=== PATIENT | male | born 1965 | race Caucasian/White ===

== ENCOUNTER 2017-10-06 13:01 | Emergency (ER) | payer BC, OTHER ==
--- NOTE | 2017-10-06 13:29 | ER Document Report ---
ED Medical Screen (RME) - General Chief Complaint: Chest Pain > 30 Stated Complaint: CHEST PAIN Time Seen by Provider: 10/06/17 13:14 Notes: RAPID MEDICAL EVALUATION DISCLOSURE I have seen this patient as part of a Rapid Medical Evaluation and, if applicable, placed any initially appropriate orders. The patient will be seen and fully evaluated, including a full history and physical exam, by a provider ( in Main ED or Fast Track) when a room becomes available. 51-year-old male here with complaints of bilateral lower chest pain diaphoresis nausea and lightheadedness that occurred earlier today while the patient was sitting at his desk. He had just gotten back from his other store location prior to the onset of the symptoms. He did not take anything for the symptoms. Symptoms lasted for approximately less than 1 minute before complete resolution. He does not currently have any of the symptoms. He did take 325 mg aspirin earlier in the day. Of note, he has a history of cardiac arrest in 2012 and was transferred to the intensive care unit in [place]. TRAVEL OUTSIDE OF THE [place] IN LAST 30 DAYS: No - Related Data Allergies/Adverse Reactions: No Known Allergies Allergy (Verified 10/06/17 13:07) Home Medications: amlodipine. potassium. metoprolol. ASA Past Medical History - Social History Frequency of alcohol use: Heavy Drug Abuse: None - Past Medical History Cardiac Medical History: Reports: Hx Hypertension Renal/ Medical History: Denies: Hx Peritoneal Dialysis Past Surgical History: Reports: Hx Cardiac Surgery - defib - Immunizations Hx Diphtheria, Pertussis, Tetanus Vaccination: Yes Physical Exam - Vital signs Vitals: Temp Pulse Resp BP Pulse Ox 97.9 F 56 L 16 149/79 H 98 10/06/17 13:17 10/06/17 13:17 10/06/17 13:17 10/06/17 13:17 10/06/17 13:17 Course - Vital Signs Vital signs: Temp Pulse Resp BP Pulse Ox 97.9 F 56 L 16 149/79 H 98 10/06/17 13:17 10/06/17 13:17 10/06/17 13:17 10/06/17 13:17 10/06/17 13:17
[2017-10-06 14:10] LABS: ABSOLUTE BASOPHILS # (AUTO) 0.1 10^3/uL (0.0-0.2); ABSOLUTE EOSINOPHILS # (AUTO) 0.4 10^3/uL (0.0-0.6); ABSOLUTE LYMPHOCYTES (AUTO) 1.5 10^3/uL (0.5-4.7); ABSOLUTE MONOCYTES (AUTO) 0.5 10^3/uL (0.1-1.4); ABSOLUTE NEUT (AUTO) 3.3 10^3/uL (1.7-8.2); BASOPHILS % (AUTO) 1.1 % (0-2); EOSINOPHILS % (AUTO) 6.9 % (0-6); HEMATOCRIT 41.6 % (37.9-51.0); HEMOGLOBIN 14.2 g/dL (13.5-17.0); MEAN CORPUSCULAR HEMOGLOBIN 29.9 pg (27.0-33.4); MEAN CORPUSCULAR HGB CONC 34.1 g/dL (32.0-36.0); MEAN CORPUSCULAR VOLUME 88 fl (80-97); MONOCYTES % (AUTO) 8.6 % (3-13); PLATELET COUNT 253 10^3/uL (150-450); RED BLOOD COUNT 4.75 10^6/uL (4.35-5.55); RED CELL DISTRIBUTION WIDTH 12.8 % (11.5-14.0); SEGMENTED NEUTROPHILS % (AUTO) 57.4 % (42-78); TOTAL CELLS COUNTED % (AUTO) 100 %; WHITE BLOOD COUNT 5.8 10^3/uL (4.0-10.5)
--- NOTE | 2017-10-06 14:10 | EKG REPORT ---
SEVERITY:- ABNORMAL ECG - SINUS RHYTHM FIRST DEGREE AV BLOCK : Confirmed by: Delbert Hatch MD 06-Oct-2017 14:10:07
[2017-10-06 14:30] LABS: ANION GAP 15 (5-19); BLOOD UREA NITROGEN 21 mg/dL (7-20); CALCIUM 9.8 mg/dL (8.4-10.2); CARBON DIOXIDE 26 mmol/L (22-30); CHLORIDE 104 mmol/L (98-107); GLUCOSE 110 mg/dL (75-110); PHOSPHORUS 3.9 mg/dL (2.5-4.5); SODIUM 144.6 mmol/L (137-145)
--- NOTE | 2017-10-06 14:46 | ER Document Report ---
ED General - General Chief Complaint: Chest Pain > 30 Stated Complaint: CHEST PAIN Time Seen by Provider: 10/06/17 13:14 Mode of Arrival: Ambulatory Information source: Patient, Relative Notes: 51-year-old male with a history of hypertension, previous episode of ventricular fibrillation in 2013 requiring a defibrillator placement presents today with complaint of chest pain. Patient states that 2 hours prior to arrival while sitting at his desk he experienced bilateral lower chest pain that he describes as a tightness. He states this tightness lasted approximately 30 seconds and has not reoccurred. He does admit to associated lightheadedness, nausea and diaphoresis with this pain. Patient currently is pain-free. He states he took 325 mg of aspirin prior to arrival. Patient denies defibrillator firing. Patient's current medications include amlodipine, metoprolol and potassium supplement. Denies any recent illnesses. He does admit to continuous tobacco use and daily alcohol use. TRAVEL OUTSIDE OF THE [place] IN LAST 30 DAYS: No - HPI Onset: Just prior to arrival Onset/Duration: Sudden, Gone Quality of pain: Other - Tightness Severity: Mild Associated symptoms: Nausea, Sweating, Other - Lightheaded Exacerbated by: Denies Relieved by: Denies Similar symptoms previously: No Recently seen / treated by doctor: No - Related Data Allergies/Adverse Reactions: No Known Allergies Allergy (Verified 10/06/17 13:07) Home Medications: amlodipine. potassium. metoprolol. ASA Past Medical History - General Information source: Patient, Relative - Social History Smoking Status: Current Every Day Smoker Frequency of alcohol use: Heavy Drug Abuse: None Lives with: Spouse/Significant other Family History: Reviewed & Not Pertinent Patient has suicidal ideation: No Patient has homicidal ideation: No - Past Medical History Cardiac Medical History: Reports: Hx Hypertension Renal/ Medical History: Denies: Hx Peritoneal Dialysis Past Surgical History: Reports: Hx Cardiac Surgery - defib - Immunizations Hx Diphtheria, Pertussis, Tetanus Vaccination: Yes Review of Systems - Review of Systems Notes: Patient denies fever, chills, vomiting, headache, ear pain, sore throat, cough, shortness of breath, abdominal pain, back pain, dysuria, hematuria, rash, SI/ HI. Patient admits to 30 seconds of chest tightness that was associated with nausea, diaphoresis and lightheadedness. Patient is currently symptom-free Physical Exam - Vital signs Vitals: Temp Pulse Resp BP Pulse Ox 97.9 F 56 L 16 149/79 H 98 10/06/17 13:17 10/06/17 13:17 10/06/17 13:17 10/06/17 13:17 10/06/17 13:17 Interpretation: Normal, Hypertensive - Notes Notes: PHYSICAL EXAMINATION: GENERAL: Well-appearing, well-nourished and in no acute distress. HEAD: Atraumatic, normocephalic. EYES: Pupils equal round and reactive to light, extraocular movements intact, sclera anicteric, conjunctiva are normal. ENT: Nares patent, oropharynx clear without exudates. Moist mucous membranes. NECK: Normal range of motion, supple without lymphadenopathy LUNGS: Breath sounds clear to auscultation bilaterally and equal. No wheezes rales or rhonchi. HEART: Regular rate and rhythm without murmurs ABDOMEN: Soft, nontender, nondistended abdomen. No guarding, no rebound. No masses appreciated. Musculoskeletal: Normal range of motion, no pitting or edema. No cyanosis. NEUROLOGICAL: Cranial nerves grossly intact. Normal speech, normal gait. Normal sensory, motor exams PSYCH: Normal mood, normal affect. SKIN: Carlos complexion. Warm, Dry, normal turgor, no rashes or lesions noted. Course - Re-evaluation Re-evalutation: Laboratory 10/06/17 10/06/17 13:58 13:58 WBC 5.8 RBC 4.75 Hgb 14.2 Hct 41.6 MCV 88 MCH 29.9 MCHC 34.1 RDW 12.8 Plt Count 253 Seg Neutrophils % 57.4 Lymphocytes % 26.0 Monocytes % 8.6 Eosinophils % 6.9 H Basophils % 1.1 Absolute Neutrophils 3.3 Absolute Lymphocytes 1.5 Absolute Monocytes 0.5 Absolute Eosinophils 0.4 Absolute Basophils 0.1 Sodium 144.6 Potassium 4.0 Chloride 104 Carbon Dioxide 26 Anion Gap 15 BUN 21 H Creatinine 1.00 Est GFR ( Amer) > 60 Est GFR (Non-Af Amer) > 60 Glucose 110 Calcium 9.8 Phosphorus 3.9 Magnesium 1.9 Laboratory 10/06/17 10/06/17 10/06/17 13:58 13:58 13:58 WBC 5.8 RBC 4.75 Hgb 14.2 Hct 41.6 MCV 88 MCH 29.9 MCHC 34.1 RDW 12.8 Plt Count 253 Seg Neutrophils % 57.4 Lymphocytes % 26.0 Monocytes % 8.6 Eosinophils % 6.9 H Basophils % 1.1 Absolute Neutrophils 3.3 Absolute Lymphocytes 1.5 Absolute Monocytes 0.5 Absolute Eosinophils 0.4 Absolute Basophils 0.1 Sodium 144.6 Potassium 4.0 Chloride 104 Carbon Dioxide 26 Anion Gap 15 BUN 21 H Creatinine 1.00 Est GFR ( Amer) > 60 Est GFR (Non-Af Amer) > 60 Glucose 110 Calcium 9.8 Phosphorus 3.9 Magnesium 1.9 Troponin I < 0.012 NT-Pro-B Natriuret Pep 38 10/06/17 17:05 WBC RBC Hgb Hct MCV MCH MCHC RDW Plt Count Seg Neutrophils % Lymphocytes % Monocytes % Eosinophils % Basophils % Absolute Neutrophils Absolute Lymphocytes Absolute Monocytes Absolute Eosinophils Absolute Basophils Sodium Potassium Chloride Carbon Dioxide Anion Gap BUN Creatinine Est GFR ( Amer) Est GFR (Non-Af Amer) Glucose Calcium Phosphorus Magnesium Troponin I < 0.012 NT-Pro-B Natriuret Pep 10/06/17 14:48 51-year-old male with a history of ventricular fibrillation with a defibrillator , hypertension, heavy alcohol use presents with complaint of chest pain that occurred 2 hours prior to arrival described as a tightness that lasted 20 seconds and self resolved and has not recurred over the 5 hours the patient was in the emergency department. Patient denies defibrillator firing. Upon arrival vitals are reviewed. Patient does not appear toxic or dehydrated. He is in no acute distress. Patient has no physical complaints upon my exam. Cardiac workup including a delta troponin was obtained within normal limits. Patient is without leukocytosis, electrolyte abnormality. EKG showed sinus rhythm and first-degree AV block. I did discuss admission with the patient and his feel that this is not necessary at this time. 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 Patient and spouse were provided the opportunity to ask questions, and express concerns. Discharge instructions discussed. Patient is agreeable with discharge home. Return indications explained and discussed with the patient who displays understanding. Patient encouraged to return to the emergency department immediately with any concerns. 10/08/17 14:36 - Vital Signs Vital signs: Temp Pulse Resp BP Pulse Ox 97.9 F 56 L 16 128/67 H 97 10/06/17 13:17 10/06/17 13:17 10/06/17 14:05 10/06/17 18:01 10/06/17 18:01 - Laboratory Result Diagrams: 10/06/17 13:58 10/06/17 13:58 Laboratory results interpreted by me: 10/06/17 10/06/17 13:58 13:58 Eosinophils % 6.9 H BUN 21 H Discharge - Discharge Clinical Impression: First degree atrioventricular block Chest pain Qualifiers: Chest pain type: unspecified Qualified Code(s): R07.9 - Chest pain, unspecified Condition: Good Disposition: HOME, SELF-CARE Instructions: Chest Pain of Unclear Cause ([facility]) Additional Instructions: Follow up with your physician tomorrow and your sawmill moulder operator for further care or return to the ED IMMEDIATELY if symptoms worsen or new concerns occur. If you cannot afford to follow up with your primary care physician a list of low cost clinics have been provided at the end of your discharge papers as well. Forms: Elevated Blood Pressure, Smoking Cessation Education Referrals: YARI VÁSQUEZ MD [Primary Care Provider] - Follow up as needed
[2017-10-06 14:48] LABS: NT PRO BNP 38 pg/mL (5-900)
[2017-10-06 14:49] LABS: TROPONIN I < 0.012 ng/mL
--- NOTE | 2017-10-06 15:04 | RADIOLOGY REPORT (SQ) ---
EXAM DESCRIPTION: CHEST 2 VIEWS COMPLETED DATE/TIME: 10/06/2017 2:32 pm REASON FOR STUDY: CP COMPARISON: 06/02/2012 NUMBER OF VIEWS: Two view TECHNIQUE: Frontal and lateral radiographic images of the chest acquired. LIMITATIONS: None. FINDINGS: LUNGS AND PLEURA: Pleural thickening on the right. Scarring in the left base. MEDIASTINUM AND HILAR STRUCTURES: Stable heart size and mediastinal structures. HEART AND VASCULAR STRUCTURES: Stable appearance. SUPPORT DEVICES: Appropriate location without change. BONES: No acute findings. OTHER: No other significant finding. IMPRESSION: No acute findings in the chest. TECHNICAL DOCUMENTATION: JOB ID: [id number] [employer]- All Rights Reserved Reading location - IP/workstation name: [email or web address]
--- NOTE | 2017-10-06 18:21 | EKG REPORT ---
SEVERITY:- ABNORMAL ECG - SINUS RHYTHM FIRST DEGREE AV BLOCK : Confirmed by: Delbert Hatch MD 06-Oct-2017 18:21:09
[2017-10-06 18:24] VITALS: BP 128/67
== END 2017-10-06 18:43 | disposition home or self-care (01) ==
LOC: ER 13:01
DX: I44.0 Atrioventricular block, first degree (principal); R07.89 Other chest pain; I49.01 Ventricular fibrillation; I10 Essential (primary) hypertension; R42 Dizziness and giddiness; R11.0 Nausea; R61 Generalized hyperhidrosis; Z79.899 Other long term (current) drug therapy; Z95.810 Presence of automatic (implantable) cardiac defibrillator; Z79.82 Long term (current) use of aspirin; F17.200 Nicotine dependence, unspecified, uncomplicated
CPT/HCPCS: 36415; 71046; 80048; 83735; 83880; 84100; 84484; 85025; 93005; 93010; 99285

== ENCOUNTER → 2020-02-21 | Outpatient (CLI) | payer BC ==
[2020-02-21 12:08] VITALS: BP 121/60
--- NOTE | 2020-02-21 12:08 | ER RDC ASSESSMENT REPORT ---
Intake - In the Last 14 days Have you traveled outside [place]?: No Have you been in close contact with someone CONFIRMED: Yes Worked in Healthcare?: No - Symptoms Subjective Fever([place] feverish): No Chills: Yes Muscule Aches: Yes Runny Nose: No Sore Throat: Yes Cough (New or worsening chronic cough): Yes Shortness of breath: No Nausea or Vomiting: Yes Headache: Yes Abdominal Pain: No Diarrhea(3 or more loose stools in last 24 hours): No - Do you have any of the following Chronic lung disease: Asthma or emphysema or COPD: No Cystic Fibrosis: No Diabetes: No High Blood Pressure: Yes Cardiovascular Disease: Yes Cardiovascular Disease Comment: Patient had ventricular fibrillation 8 years ago and has a implanted defibrillator Chronic Kidney Disease: No Chronic Liver Disease: No Chronic blood disorder like Sickle Cell Disease: No Weak immune system due to disease or medication: No Neurologic condition that limits movement: No Developmental delay - Moderate to Severe: No Recent (within past 2 weeks) or current : No Morbid Obesity (>100 pounds over ideal weight): Yes Obesity Comment: Height 6 feet 2 inches weight 260 pounds - Objective Temperature: 98.1 F Pulse Rate: 67 Respiratory Rate: 18 Blood Pressure: 121/60 O2 Sat by Pulse Oximetry: 96 Objective: Given above, testing performed: If Testing Performed: Test Specimen Type Sent to General - General Information source: Patient Notes: Here at [facility] for cover testing. Patient reports friend had tested positive about a month ago and patient had dinner with friend on Friday patient developed symptoms yesterday. Reporting chills muscle aches cough nausea and headache. Patient PCP is Dr. Guallpa and plans to follow-up with him later today. - Related Data Allergies/Adverse Reactions: No Known Allergies Allergy (Verified 10/06/17 13:07) Past Medical History - General Information source: Patient - Social History Smoking Status: Former Smoker - Quit October 2019 Family History: Reviewed & Not Pertinent - Past Medical History Cardiac Medical History: Reports: Hx Hypertension Renal/ Medical History: Denies: Hx Peritoneal Dialysis Past Surgical History: Reports: Hx Cardiac Surgery - defib Physical Exam - General General appearance: Appears well, Alert In distress: None Notes: PHYSICAL EXAMINATION: GENERAL: Well-appearing and in no acute distress. HEAD: Atraumatic, normocephalic. EYES: sclera anicteric, conjunctiva are normal. ENT: nares patent. Moist mucous membranes. NECK: Normal range of motion, supple without lymphadenopathy LUNGS: CTAB and equal. No wheezes rales or rhonchi. Respirations even and unlabored lung sounds clear. HEART: Regular rate and rhythm without murmurs ABDOMEN: Soft, nontender, normal bowel sounds, no guarding. EXTREMITIES: Normal range of motion, no pitting edema. No cyanosis. NEUROLOGICAL: Cranial nerves grossly intact. Normal speech. Normal gait. PSYCH: Normal mood, normal affect. SKIN: Warm, Dry, normal turgor, no rashes or lesions noted Diagnostic Results Laboratory Results: Patient informed of negative rapid strep and negative rapid flu results. Pending strep culture pending COVID testing results. Patient provided instructions regarding code to include: As a person under investigation for Covid 19, the [place] department of Health and Human Services, division of public health advises you to adhere to the following guidance until your test results are reported to you. If your test result is positive, you will receive additional information from your provider and your local health department at that time. Remain at home until you are cleared by the health provider or public health authorities. Keep a log of visitors to your home, notify any visitors to your home of your isolation status. If you plan to move to a new address or leave the county, notify the local health department in your County. Call your doctor or seek care if you have an urgent medical need. Before seeking medical care, call ahead to get instructions from the provider before arriving at the medical office clinic or hospital. Notify them that you are being tested for the virus that causes Covid 19 so that arrangements can be made, as necessary, to prevent transmission to others in the healthcare setting. Next, notify the local health department in your county. If a medical emergency arises and you need to call 911, inform the first responders that you are being tested for the virus that causes Covid 19. Next, notify the local health department in your county. Patient Education/Counseling Counseling/Education: Patient presents with upper respiratory symptoms worrisome for possible Covid 19. Patient does not have emergency worring symptoms such as difficulty breathing, shortness of breath, chest pain, pressure, confusion or cyanosis. Patient appears suitable for discharge. Patient instructed to follow-up with PCP Dr. Darvin Will today. To ED for persistent or worsening symptoms. Patient's vital signs are stable and patient is nontoxic in appearance. Good return precautions have been discussed with patient, patient verbalized understanding and is agreeable with discharge plan of care at this time. RDC Discharge - Discharge Condition: Stable Disposition: Home; Selfcare
[2020-02-21 12:59] LABS: A TYPE INFLUENZA AG NEGATIVE (NEGATIVE); B INFLUENZA AG NEGATIVE (NEGATIVE)
== END ==
LOC: RDC 11:21
PROVIDERS: ATTEND Nurse Practitioner Family
DX: U07.1 COVID-19 (principal)
CPT/HCPCS: 87070; 87880; 87804; 99201; 99211; U0003; C9803; 87635